=== PATIENT | male | born 1955 | race Hispanic/Latino ===

== ENCOUNTER 2025-03-08 09:48 | Day surgery (SDC) | payer OTHER ==
[2025-03-06 13:29] LABS: BASOPHILS # (AUTO) 0.03 K/uL (0.00-0.20); BASOPHILS % (AUTO) 0.6 % (0.0-5.0); EOSINOPHILS # (AUTO) 0.07 K/uL (0.00-0.70); EOSINOPHILS % (AUTO) 1.4 % (0.0-8.0); HEMATOCRIT 38.2 % (42-54); IMMATURE GRANULOCYTE ABSOLUTE 0.01 K/uL (0-1); LYMPHOCYTES % (AUTO) 40.2 % (21.0-51.0); MEAN CORPUSCULAR HEMOGLOBIN 32.9 pg (27.0-33.0); MEAN CORPUSCULAR HGB CONC 34.6 g/dL (32.0-36.0); MEAN CORPUSCULAR VOLUME 95.3 fL (79-99); MONOCYTES # (AUTO) 0.7 K/uL (0.1-1.0); MONOCYTES % (AUTO) 13.1 % (3.0-13.0); NEUTROPHILS # (AUTO) 2.3 K/uL (1.8-7.7); NEUTROPHILS % (AUTO) 44.5 % (40.0-77.0); PLATELET COUNT (AUTO) 228 K/uL (130-400); RED BLOOD CELL COUNT(AUTO) 4.01 MIL/uL (4.50-6.20); RED CELL DISTRIBUTION WIDTH 12.5 % (11.0-15.5); WHITE BLOOD COUNT (AUTO) 5.1 K/uL (4.8-10.8)
[2025-03-06 13:35] LABS: APPEARANCE,URINE CLEAR (CLEAR); BILIRUBIN,URINE NEGATIVE (NEGATIVE); COLOR,URINE COLORLESS (YELLOW); GLUCOSE, URINE (UA) 30 mg/dL (NEGATIVE); KETONES,URINE NEGATIVE (NEGATIVE); LEUKOCYTE ESTERASE ,URINE NEGATIVE Leu/uL (NEGATIVE); NITRATE,URINE NEGATIVE (NEGATIVE); OCCULT BLOOD,URINE NEGATIVE (NEGATIVE); PROTEIN,URINE NEGATIVE (NEGATIVE); UROBILINOGEN,URINE 0.2 mg/dL (0.2-1.0)
[2025-03-06 13:38] LABS: CREATININE 0.9 mg/dL (0.5-1.3); POTASSIUM 4.9 mmol/L (3.5-5.1)
[2025-03-06 13:41] LABS: INR 0.97 (0.85-1.15); PROTHROMBIN TIME 10.3 SEC (9.6-11.6)
[2025-03-06 13:43] LABS: ADD UA MICROSCOPIC YES; PARTIAL THROMBOPLASTIN TIME 27.4 SEC (26.3-35.5)
[2025-03-06 13:53] LABS: BACTERIA,URINE None Seen /HPF (None Seen); RBC,URINE None Seen /HPF (0-1); SQUAMOUS EPITHELIAL CELL,UR Rare /HPF (0-2); WBC,URINE None Seen /HPF (0-1)
[2025-03-06 14:01] VITALS: BP 149/63; PULSE 78; RESP 18; TEMP 99.3
--- NOTE | 2025-03-06 14:08 | EKG ---
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
--- NOTE | 2025-03-06 14:11 | HMCIMG ---
PORTABLE CHEST RADIOGRAPH INDICATION: PREOP COMPARISON: None FINDINGS: Heart size is normal. The pulmonary vascularity and ivan appear normal. No abnormal pulmonary parenchymal opacity or consolidation identified. No significant pleural effusion noted. No pneumothorax detected. IMPRESSION: No radiographic evidence for any acute cardiopulmonary process.
[2025-03-06 14:35] LABS: B-TYPE NATRIURETIC PEPTIDE 45 pg/mL (0-100)
[2025-03-08] VITALS (11 sets, daily range): BP systolic 109–146; BP diastolic 46–72; PULSE 67–82; RESP 16–18; TEMP 97.5–98.3
[~2025-03-08] VITALS: Ht 162.6 cm; Wt 69.6 kg
[~2025-03-08 09:48] MED LIST: ASPI-1443 PO; ATOR40TA69 PO; GLIP10TA16 PO; LISI1TAB49 PO; METF-446 PO; PIOG15TA66 PO
[2025-03-08] MEDS ORDERED: HEParin-NS 1,000 UNIT/500 ML 1,000 ML IV ONE (12:37)
[2025-03-08] MEDS ORDERED: LIDOCAINE HCL 400MG/20ML VIAL ONE (12:37)
[2025-03-08] MEDS ORDERED: VERAPAMIL HCL 2.5 MG/ML VIAL ONE (12:37)
[2025-03-08] MEDS ORDERED: HEParin 10,000 UNIT/10ML (1,000 UNIT/ML) VIAL ONE (12:37)
[2025-03-08] MEDS ORDERED: NITROGLYCERIN 50MG VIAL ONE (12:38)
[2025-03-08] MEDS ORDERED: IOHEXOL-350 50ML VIAL IV ONE (12:38)
[2025-03-08] MEDS ORDERED: IOHEXOL 350 MG/ML 100ML INFUS..BTL IV ONE ×2 (12:38→14:19)
[2025-03-08] MEDS ORDERED: niCARDIpine 25MG INJ IV ONE (12:49)
[2025-03-08] MEDS ORDERED: FENTanyl CITRate PF 50 MCG/1 ML 2ML VIAL ONE (13:09)
[2025-03-08] MEDS ORDERED: MIDAZOLAM HCL 1 MG/ML 2ML VIAL ONE ×3 (13:10→14:07)
[2025-03-08] MEDS ORDERED: DEXTROSE 50%-WATER 50 ML DISP.SYRIN IV PRN (14:30)
[2025-03-08] MEDS ORDERED: 0.9%NACL 1000ML 1,000 ML IV SCH (14:30)
[2025-03-08] MEDS ORDERED: ASPIRIN 325MG EC TAB PO ONE (14:31)
[2025-03-08] MEDS ORDERED: cloPIDOgrel 300MG TAB ONE (14:31)
[2025-03-08] MEDS ORDERED: hydrALAZine 20MG/ML VIAL ONE (14:36)
[2025-03-08] MEDS ORDERED: NITROGLYCERIN 4.9GM SPRAY 60 SPRAY/BOT SPRY TL ONE (14:40)
[2025-03-08] MEDS ORDERED: INSULIN humuLIN R 100 UNIT/ML 3ML SQ SCH (16:30)
--- NOTE | 2025-03-08 16:48 | CCATH ---
PROCEDURE NOTE PROCEDURES: * Left heart catheterization. * Selective right and left coronary arteriogram. * Angioplasty and stent of the middle LAD x 2. * Conscious sedation for 90 minutes. INDICATIONS: * Aortic stenosis. * Syncope. * Abnormal exercise tolerance test. COMPLICATIONS: None. TOTAL CONTRAST: 160 mL. APPROACH: Right radial approach. DESCRIPTION OF PROCEDURE: The patient was taken to the Cardiac Catheterization Lab after the appropriate operative consents were signed. He was prepped and draped in the usual fashion. After conscious sedation was administered, the right radial artery region was infiltrated with 2% Xylocaine without epinephrine. At this point, a 6-[place] slender sheath was advanced in a retrograde fashion via modified Seldinger technique. A TIG 4 catheter was advanced and positioned at the aortic root. It was easily crossed into the left ventricular cavity. Left ventricular end-diastolic pressure measurement was obtained. Ventriculography was deferred. Pullback revealed a minimal degree of aortic stenosis approximately 10 mmHg as opposed to the findings on echocardiogram. At this point, the catheter was engaged in the ostium of the direct coronary artery. This was imaged identifying total chronic occlusion in its proximal portion with no visualization of the distal RCA. The catheter was then redirected and engaged in the circumflex ostium. There was no left main in this patient's anatomy. He had 2 separate ostia for the left anterior descending and left circumflex. Circumflex coronary artery is a large vessel that gives rise to several marginal branches and ongoing circ. It gave rise to a branching PLVB system and a small left PDA. There was evidence of collateralization to the acute marginal branch of the right coronary artery via left to right collaterals from the circumflex and from the LAD. The second obtuse marginal was a sizable vessel and had 2 branches. The superior branch was a smaller branch. The inferior branch was the more sizable branch and had a 70% tubular segment in it. The third obtuse marginal branch was normal. The PLVB was a branching vessel that had a 70% lesion proximal to the bifurcation into 2 vessels. The LAD was quite difficult to cannulate via radial approach, so we were able to finally get a 3.5 catheter that would sub-selectively image the LAD; however, a FL3.0 guide catheter was selected and was able to engage into the LAD. The LAD was imaged in multiplane. This was a large vessel that had an ostial 30% stenotic lesion giving rise to a small branching diagonal that had a 90% stenotic lesion. The mid LAD had a 95% calcified lesion. At this point, I elected to proceed with angioplasty and stenting of the LAD and stage any intervention to the circumflex system at a different time. We utilized a 0.014 wire after full heparinization. This was advanced to position in the distal LAD. Attempts at advancing 3.5 x 26 mm [place] stent were made; however, they were not successful due to the severity of the lesion and the degree of calcification. I utilized the GuideLiner and was able to advance the GuideLiner to the level of the lesion, which allowed me to cross with the stent. The stent was then deployed to 14 atmospheres; however, the lesion in the segment of calcified area would not yield. The balloon was removed and we then utilized a 3.5 x 15 NC balloon, which was placed in the area of the stenosis and inflated to 18 atmospheres of 3.57 mm size. The lesion finally yielded nicely. Imaging revealed there was some haziness at the distal edge of the stent. I elected to proceed with a second stent and I utilized a more distal 3.0 x 12 overlapping stent, which was inflated to 18 atmospheres with good final angiographic results. At this point, the procedure was completed, the patient tolerated it well, left the Cardiac Catheterization Lab in stable condition. FINAL IMPRESSION: * Severe 3-vessel coronary artery disease. * Minimal aortic stenosis with less than 10 mmHg pullback gradient. * Preserved left ventricular systolic function by noninvasive studies. * Successful balloon angioplasty of the mid LAD with 2 overlapping stents 3.5 x 26 and a more distal 3.0 x 12 post dilated with a 3.5 mm balloon to 3.5 cm size with good final angiographic results. PLAN: Continue medical management. TID: [id number] RECEIPT: [id number]
== END 2025-03-08 18:39 | disposition home or self-care (01) ==
LOC: DAH 09:48
PROVIDERS: ATTEND Internal Medicine Cardiovascular Disease
DX: I35.0 Nonrheumatic aortic (valve) stenosis (principal); R55 Syncope and collapse; R94.39 Abnormal result of other cardiovascular function study; I25.10 Atherosclerotic heart disease of native coronary artery without angina pectoris; I25.84 Coronary atherosclerosis due to calcified coronary lesion; I10 Essential (primary) hypertension; E78.5 Hyperlipidemia, unspecified; E11.9 Type 2 diabetes mellitus without complications; Z79.899 Other long term (current) drug therapy; Z79.84 Long term (current) use of oral hypoglycemic drugs; Z79.82 Long term (current) use of aspirin; Z86.73 Personal history of transient ischemic attack (TIA), and cerebral infarction without residual deficits; Z84.89 Family history of other specified conditions; Z98.890 Other specified postprocedural states; F17.200 Nicotine dependence, unspecified, uncomplicated
CPT/HCPCS: 80048; 83880; 85025; 85610; 85730; 81001; 36415; 71045; 93005; 93458; 85347; 82948; C9600; Q9965 ×3; C1769 ×2; C1725; C1874 ×2; C1887 ×2; C1894; J3010; J3490 ×3; J0360; J1644 ×2; J2250 ×3; Q9967 ×2; A4215; A4222; A4221; A4663; A4216; A4606; A4223 ×3; 99156; 99157

== ENCOUNTER 2025-05-04 05:58 | Day surgery (SDC) | payer OTHER ==
[2025-05-02 09:51] LABS: BASOPHILS # (AUTO) 0.02 K/uL (0.00-0.20); BASOPHILS % (AUTO) 0.3 % (0.0-5.0); EOSINOPHILS # (AUTO) 0.12 K/uL (0.00-0.70); HEMATOCRIT 34.9 % (42-54); IMMATURE GRANULOCYTE ABSOLUTE 0.01 K/uL (0-1); LYMPHOCYTES # (AUTO) 1.7 K/uL (1.0-4.8); LYMPHOCYTES % (AUTO) 27.5 % (21.0-51.0); MEAN CORPUSCULAR HEMOGLOBIN 33.6 pg (27.0-33.0); MEAN CORPUSCULAR HGB CONC 36.4 g/dL (32.0-36.0); MEAN CORPUSCULAR VOLUME 92.3 fL (79-99); MONOCYTES # (AUTO) 0.5 K/uL (0.1-1.0); MONOCYTES % (AUTO) 8.1 % (3.0-13.0); NEUTROPHILS # (AUTO) 3.8 K/uL (1.8-7.7); NEUTROPHILS % (AUTO) 61.9 % (40.0-77.0); PLATELET COUNT (AUTO) 230 K/uL (130-400); RED BLOOD CELL COUNT(AUTO) 3.78 MIL/uL (4.50-6.20); RED CELL DISTRIBUTION WIDTH 12.2 % (11.0-15.5); WHITE BLOOD COUNT (AUTO) 6.2 K/uL (4.8-10.8)
[2025-05-02 09:52] LABS: APPEARANCE,URINE CLEAR (CLEAR); BILIRUBIN,URINE NEGATIVE (NEGATIVE); COLOR,URINE LIGHT-YELLOW (YELLOW); GLUCOSE, URINE (UA) 300 mg/dL (NEGATIVE); KETONES,URINE NEGATIVE (NEGATIVE); LEUKOCYTE ESTERASE ,URINE NEGATIVE Leu/uL (NEGATIVE); NITRATE,URINE NEGATIVE (NEGATIVE); OCCULT BLOOD,URINE NEGATIVE (NEGATIVE); PH,URINE 6.5 (5.0-8.0); PROTEIN,URINE 20 mg/dL (NEGATIVE)
[2025-05-02 09:55] LABS: ADD UA MICROSCOPIC YES
[2025-05-02 09:57] VITALS: BP 128/55; PULSE 67; RESP 19; TEMP 97.8
[2025-05-02 10:01] LABS: BACTERIA,URINE None Seen /HPF (None Seen); RBC,URINE 0-1 /HPF (0-1)
[2025-05-02 10:01] LABS: INR 0.99 (0.85-1.15); PROTHROMBIN TIME 10.5 SEC (9.6-11.6)
[2025-05-02 10:02] LABS: PARTIAL THROMBOPLASTIN TIME 27.5 SEC (26.3-35.5)
[2025-05-02 10:03] LABS: CREATININE 0.8 mg/dL (0.5-1.3); POTASSIUM 5.2 mmol/L (3.5-5.1)
[2025-05-02 10:37] LABS: B-TYPE NATRIURETIC PEPTIDE 76 pg/mL (0-100)
--- NOTE | 2025-05-02 10:48 | EKG ---
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
--- NOTE | 2025-05-02 12:10 | HMCIMG ---
Exam Type: CHEST 1VW Clinical Information: PREOP Comparison: None Findings: The lungs are clear of infiltrates. The heart is normal in size. The bony and soft tissue structures of the chest are unremarkable. Impression: Clear lungs.
--- NOTE | 2025-05-03 11:22 | NUR ---
REPORTED REPORTED BMP TO KAYLA BARRERA NP. RECEIVED ORDERS TO REPEAT POTASSIUM MORNING OF PROCEDURE.
[2025-05-04] VITALS (9 sets, daily range): BP systolic 119–163; BP diastolic 44–95; PULSE 49–64; RESP 12–18; TEMP 97.3–97.6
[~2025-05-04] VITALS: Ht 162.6 cm; Wt 69.1 kg
[~2025-05-04 05:58] MED LIST changes: +CLOP75TA32 PO; +METO25TA6 PO; +MVIT PO; -PIOG15TA66 PO
[2025-05-04] MEDS ORDERED: LIDOCAINE HCL 400MG/20ML VIAL ONE (07:11)
[2025-05-04] MEDS ORDERED: SODIUM BICARB 50MEQ 50ML VIAL 50 ML ONE (07:11)
[2025-05-04] MEDS ORDERED: niCARDIpine 25MG INJ IV ONE (07:12)
[2025-05-04] MEDS ORDERED: HEParin-NS 1,000 UNIT/500 ML 1,000 ML IV ONE (07:12)
[2025-05-04] MEDS ORDERED: IOHEXOL 350 MG/ML 100ML INFUS..BTL IV ONE (07:12)
[2025-05-04] MEDS ORDERED: NITROGLYCERIN 50MG VIAL ONE (07:12)
[2025-05-04] MEDS ORDERED: HEParin 10,000 UNIT/10ML (1,000 UNIT/ML) VIAL ONE (07:12)
[2025-05-04] MEDS ORDERED: FENTanyl CITRate PF 50 MCG/1 ML 2ML VIAL ONE (07:34)
[2025-05-04] MEDS ORDERED: MIDAZOLAM HCL 1 MG/ML 2ML VIAL ONE ×3 (07:35→08:30)
[2025-05-04] MEDS ORDERED: ATROPINE 1MG SYG IVP ONE (08:00)
[2025-05-04] MEDS ORDERED: metoPROLOL tartRATE 1 MG/ML 5ML VIAL IV ONE ×3 (08:28→08:49)
[2025-05-04] MEDS ORDERED: DEXTROSE 50%-WATER 50 ML DISP.SYRIN IV PRN (09:30)
[2025-05-04] MEDS ORDERED: 0.9%NACL 1000ML 1,000 ML IV SCH (09:30)
[2025-05-04] MEDS ORDERED: INSULIN humuLIN R 100 UNIT/ML 3ML SQ SCH (11:30)
--- NOTE | 2025-05-04 12:40 | NUR ---
vasband removed at this time, no bleeding noted, site clean, dry and intact. dressed with sterile 2x2 gauze and tegaderm dressing.
--- NOTE | 2025-05-04 13:38 | CCATH ---
PROCEDURE NOTE PROCEDURES: * Left heart catheterization. * Selective left coronary arteriogram. * Balloon angioplasty of the distal OM. * Stenting of the distal OM x 2 with overlapping stents. * Angioplasty and stent placement in OM2. * Conscious sedation for 60 minutes. INDICATIONS: * Severe coronary artery disease, staged procedure. * Status post angioplasty and stenting of the LAD in February of this year. * Aortic stenosis. COMPLICATIONS: None. TOTAL CONTRAST: Approximately 105 mL. DESCRIPTION OF PROCEDURE: The patient was taken to the cardiac operations label clerk after appropriate operative consents were signed. He was prepped and draped in the usual fashion. After conscious sedation was performed, right radial artery region was infiltrated with 2% Xylocaine without epinephrine. The right radial artery was accessed and a radial slender sheath 6-[place] was advanced in retrograde fashion by the modified Seldinger technique. At this point, the Selective cath FL-3.5 guide given the fact that we anticipated intervention. This was advanced over an indwelling wire and placed in the left ventricular cavity. Left ventricular end-diastolic pressure measurement was obtained. Ventriculography was deferred. The patient has preserved LV systolic function by echocardiography. At this point, we were able to obtain an LVEDP and pullback revealed mild aortic stenosis with gradiant of approximately 80 mmHg. The FL 6-[place] guide catheter was placed in the circumflex coronary artery and the LAD was imaged sub-selectively. The patient did not have a left main and had 2 separate ostia for the LAD and the circumflex. The LAD was imaged and revealed a patent chronic stent deployed in February of this year with excellent flow to the LAD. The diagonals were small. The circumflex was a dominant vessel that gave rise to a tiny OM1, a large, branching OM2, and a distal OM that had an 80% lesion. The OM2 also had an 80% lesion. The PDA and PLVB were patent and small. At this point, after full heparinization check, attempts at proceeding with placement of a 2.5 stent in the distal OM were not successful given the severity of the stenosis. We then proceeded with pre-dilation with a 2.5 NC balloon. This allowed introduction of a stent. The patient had a 2.5 x 12 stent that was deployed and the distal edge appeared to be hazy, so we elected to proceed with a distal 2.25 x 8 stent, which was overlapping. Both were deployed to normal pressures with good final angiographic results. At this point, the wire was redirected and placed in the distal OM2. We utilized a 3.0 x 22 [place], which was placed in the area of stenosis deployed. The stent appeared to be under-dilated and was further treated with a 3.0 NC balloon to 3.05 mm size at 16 atmospheres with good final angiographic results. At this point, the procedure was completed, the catheter was withdrawn over an indwelling wire. The patient tolerated it well and left the cardiac operations label clerk in stable condition. FINAL IMPRESSION: * Severe coronary artery disease. * Patent LAD stent, deployed in February of this year. * Mild aortic stenosis. * Successful balloon angioplasty and stent placement of the distal OM with 2.5 and a more distal overlapping 2.25 drug-eluting stents. * Successful balloon angioplasty and stenting of the second OM with a 3.0 [place] drug-eluting stent, post-dilated with a 3 mm balloon to 16 atmospheres with good final angiographic results. PLAN: At this point, the patient will be managed medically. TID: [id number] RECEIPT: [id number]
== END 2025-05-04 13:20 | disposition home or self-care (01) ==
LOC: DAH 05:58
PROVIDERS: ATTEND Internal Medicine Cardiovascular Disease
DX: R94.39 Abnormal result of other cardiovascular function study (principal); I25.118 Atherosclerotic heart disease of native coronary artery with other forms of angina pectoris; I35.0 Nonrheumatic aortic (valve) stenosis; I10 Essential (primary) hypertension; E11.9 Type 2 diabetes mellitus without complications; M19.90 Unspecified osteoarthritis, unspecified site; Z86.73 Personal history of transient ischemic attack (TIA), and cerebral infarction without residual deficits; E78.5 Hyperlipidemia, unspecified; Z95.5 Presence of coronary angioplasty implant and graft; Z98.42 Cataract extraction status, left eye; Z98.41 Cataract extraction status, right eye; Z79.01 Long term (current) use of anticoagulants; Z79.82 Long term (current) use of aspirin; Z79.899 Other long term (current) drug therapy
CPT/HCPCS: 80048; 83880; 85025; 85610; 85730; 81001; 36415 ×2; 71045; 93005; 84132; 85347 ×2; 82948; 93458; 99157 ×4; 99156; C9600; C1769 ×2; C1887; C1725 ×2; C1874 ×3; A4649; C1894; J3010; J3490 ×7; J0461; J1644 ×2; J2250 ×3; Q9967; A4215; A4222; A4221; A4663; A4216; A6206; A4606; C9601; Q9965 ×2; A4223 ×3; 96360; 96361